=== PATIENT | male | born 1990 | race Two or more races ===

== ENCOUNTER 2024-09-14 17:28 | Emergency (ER) | payer OTHER ==
[~2024-09-14] VITALS: Ht 182.9 cm; Wt 85.7 kg
[2024-09-14] MEDS: ACETAMINOPHEN ES 500 MG TABLET PO ONE (18:00)
[2024-09-14] MEDS ORDERED: PANTOPRAZOLE 40 MG VIAL ONE (18:13)
[2024-09-14] MEDS ORDERED: ACETAMINOPHEN ES 500 MG TABLET ONE (18:13)
[2024-09-14] MEDS ORDERED: ONDANSETRON HCL/PF 4 MG/2 ML VIAL ONE (18:13)
[2024-09-14] MEDS ORDERED: FAMOTIDINE/PF INJ 20 MG/2 ML VIAL IV ONE (18:14)
[2024-09-14 18:17] LABS: PLATELET COUNT (AUTO) 269 K/uL (150-450); RED BLOOD CELL COUNT(AUTO) 6.01 MIL/uL (4.5-6.0); RED CELL DISTRIBUTION WIDTH 14.2 % (11.5-15.0); WHITE BLOOD COUNT (AUTO) 6.5 K/uL (4.3-11.0)
[2024-09-14 18:25] LABS: CALCIUM, SERUM 8.9 mg/dL (8.5-10.1); CREATININE 0.9 mg/dL (0.6-1.3); SODIUM SERUM 136.0 mmol/L (136-145); UREA NITROGEN, BLOOD 19.0 mg/dL (7-18)
[2024-09-14 18:31] LABS: ASPARTATE AMINOTRANSFERASE 26.0 U/L (15-37); TOTAL PROTEIN, SERUM 7.7 g/dL (6.4-8.2)
[2024-09-14] MEDS: IV NS 0.9% 1,000 ML BAG IV ONE (18:31)
[2024-09-14] MEDS: PANTOPRAZOLE 40 MG VIAL IV ONE (18:33)
[2024-09-14] MEDS: FAMOTIDINE/PF INJ 20 MG/2 ML VIAL IV ONE (18:33)
[2024-09-14] MEDS: ONDANSETRON HCL/PF 4 MG/2 ML VIAL IVP ONE (18:33)
[2024-09-14] MEDS ORDERED: ONDA4TAB5 PO (18:58)
[2024-09-14] MEDS ORDERED: IBUP-1953 PO (18:58)
[2024-09-14 19:18] VITALS: BP 140/80; TEMP 98.5; O2SAT 96
== END 2024-09-14 19:19 | disposition home or self-care (01) ==
LOC: ER 17:28
DX: R19.7 Diarrhea, unspecified (principal); R11.0 Nausea; R42 Dizziness and giddiness; R10.9 Unspecified abdominal pain; Z60.2 Problems related to living alone
CPT/HCPCS: 99284; 96374; 96375; 96361; 93005; 85025; 80048; 83690; 80076; 36415; J1308; J2405; J7030; J2470